=== PATIENT | female | born 1975 | race African-American/Black ===

== ENCOUNTER 2017-03-18 13:15 | Emergency (ER) | payer BC ==
[~2017-03-18] VITALS: Ht 160 cm; Wt 63.2 kg
[2017-03-18 14:10] LABS: CALCIUM 8.8 mg/dL (8.5-10.1); CARBON DIOXIDE 28.9 mmol/L (21-32); CREATININE SERUM 1.3 mg/dL (0.6-1.0)
[2017-03-18 14:26] LABS: microscopic required? YES; urine erythrocyte 3+ (NEGATIVE)
[2017-03-18 15:07] VITALS: BP 109/61
== END 2017-03-18 15:07 | disposition home or self-care (01) ==
LOC: ED 13:15
PROVIDERS: Emergency Medicine
DX: R10.30 Lower abdominal pain, unspecified (principal); R11.2 Nausea with vomiting, unspecified
CPT/HCPCS: 36415; J0696; J1885; Q0162